=== PATIENT | female | born 1985 | race Caucasian/White ===

== ENCOUNTER 2017-07-11 08:42 | Emergency (ER) | payer MEDICAID ==
[~2017-07-11] VITALS: Ht 170.2 cm; Wt 88.0 kg
[2017-07-11 08:48] VITALS: BP 152/106
--- NOTE | 2017-07-11 09:02 | NUR ---
PT C/O EXTREMITY PAIN X 3 DAYS---DENIES INJURY OR TAKING MEDICATION. DENIES N/V/D; SKIN IS PINK/WARM/DRY; AAOX4 WITH EVEN AND STEADY GAIT; LUNGS CLEAR BL; HR EVEN AND REGULAR; PT DENIES ANY FEVER, CP, SOB, OR COUGH AT THIS TIME; PATIENT STATES PAIN OF 7/10 AT THIS TIME; VSS; PATIENT POSITIONED FOR COMFORT; HOB ELEVATED; BEDRAILS UP X2; BED DOWN. ER MD MADE AWARE OF PT STATUS.
--- NOTE | 2017-07-11 09:38 | NUR ---
PT LEFT FOR X-RAY VIA WHEELCHAIR PER TECH.
--- NOTE | 2017-07-11 11:00 | NUR ---
PT STAYING BED, STATED SHE FEELS FINE. NO S/S OF RESPIRATORY DISTRESS NOTED.
[2017-07-11 11:10] VITALS: BP 150/90
--- NOTE | 2017-07-11 11:12 | NUR ---
Patient discharged with v/s stable. Written and verbal after care instructions given and explained. Patient alert, oriented and verbalized understanding of instructions. Ambulatory with steady gait. All questions addressed prior to discharge. ID band removed. Patient advised to follow up with PMD. Rx of IBUPROFEN AND NORCO given. Patient educated on indication of medication including possible reaction and side effects. Opportunity to ask questions provided and answered.
== END 2017-07-11 11:12 | disposition home or self-care (01) ==
LOC: MED 08:42
DX: L40.9 Psoriasis, unspecified (principal); M25.572 Pain in left ankle and joints of left foot; M25.522 Pain in left elbow
CPT/HCPCS: 73610; 81025; 99284

== ENCOUNTER 2018-11-13 16:46 | Emergency (ER) | payer MEDICAID ==
[~2018-11-13] VITALS: Ht 167.6 cm; Wt 86.2 kg
[2018-11-13 16:54] VITALS: BP 194/105
--- NOTE | 2018-11-13 17:03 | NUR ---
Note undone in EDM - 11/13/18 at 1712 by JASON 33F BIB MOTHER C/O HYPERTENSION X 1 WK. PT STATES SHE FEELS WEAK, DRY MOUTH AND DIZZINESS, NAUSEA, - VOMITING. PT DENIES ANY GONZALES. PT REPORTS OF BLURRY VISION. PT IS AOX4 TO PERSON, PLACE, TIME, AND SITUATION. PT WITH STEADY GAIT. RR ARE EVEN AND UNLABORED. PT DENIES ANY SOB AT THIS TIME, BUT PT STS SOB EARLIER THIS WEEK. NAD. ER MD ESQUEDA NOTIFIED. WILL CONTINUE TO MONITOR.
--- NOTE | 2018-11-13 17:03 | NUR ---
33F BIB MOTHER C/O HYPERTENSION X 1 WK. PT PRESCRIBED BENAZEPRIL TODAY BY PCP. PT STATES SHE FEELS WEAK, DRY MOUTH AND DIZZINESS, NAUSEA, - VOMITING. PT REPORTS OF 9/10 HEADACHE. PT REPORTS OF BLURRY VISION. PT IS AOX4 TO PERSON, PLACE, TIME, AND SITUATION. PT WITH STEADY GAIT. RR ARE EVEN AND UNLABORED. PT DENIES ANY SOB AT THIS TIME, BUT PT STS SOB EARLIER THIS WEEK. NAD. ER MD ESQUEDA NOTIFIED. WILL CONTINUE TO MONITOR.
[2018-11-13] MEDS ORDERED: ENALAPRIL 10 MG TAB PO ONE (17:15)
[2018-11-13] MEDS ORDERED: NACL 0.9% 1,000 ML IV ONE (17:34)
[2018-11-13] MEDS ORDERED: diphenhydrAMINE 50 MG/ML VIAL IVP ONE (17:35)
[2018-11-13] MEDS ORDERED: METOCLOPRAMIDE 10 MG/2 ML INJ VIAL IVP ONE (17:35)
--- NOTE | 2018-11-13 17:40 | NUR ---
ER MD ESQUEDA BY BEDSIDE EXAMINING PT
[2018-11-13 18:53] VITALS: BP 138/86
== END 2018-11-13 17:40 | disposition home or self-care (01) ==
LOC: MED 16:46
DX: R51 Headache (principal); I10 Essential (primary) hypertension
CPT/HCPCS: 81002; 81025; 96374; 96375; 99283; J1200; J2765; J7030

== ENCOUNTER 2023-07-08 12:35 | Emergency (ER) | payer MEDICAID, OTHER ==
[~2023-07-08] VITALS: Ht 165.1 cm; Wt 74.8 kg
[2023-07-08 12:53] VITALS: BP 169/110; PULSE 68; RESP 17; TEMP 97.4; O2SAT 98
[2023-07-08] MEDS ORDERED: diphenhydrAMINE 50 MG/ML VIAL IVP ONE (13:20)
[2023-07-08] MEDS ORDERED: KETOROLAC 30 MG/ML VIAL IVP ONE (13:20)
[2023-07-08] MEDS ORDERED: PROCHLORPERAZINE 10 MG/2 ML VIAL IVP ONE (13:20)
[2023-07-08] MEDS ORDERED: IBUP-2218 PO (14:02)
[2023-07-08] MEDS ORDERED: ACET-10509 PO (14:02)
[2023-07-08 14:17] LABS: BASOPHILS % (AUTO) 0.5 % (0.0-2.0); EOSINOPHILS % (AUTO) 0.4 % (0.0-4.0); HEMATOCRIT 31.2 % (36-48); HEMOGLOBIN 10.8 g/dL (12.0-16.0); LYMPHOCYTES # (AUTO) 1.5 K/uL (2.5-16.5); LYMPHOCYTES % (AUTO) 18.7 % (20.5-51.1); MEAN CORPUSCULAR HEMOGLOBIN 31 pg (27-31); MEAN CORPUSCULAR HGB CONC 35 g/dL (33-37); MEAN CORPUSCULAR VOLUME 89.9 fL (80-94); MONOCYTES # (AUTO) 0.8 K/uL (0.8-1.0); MONOCYTES % (AUTO) 10.2 % (1.7-9.3); NEUTROPHILS # (AUTO) 5.5 K/uL (1.8-7.7); NEUTROPHILS % (AUTO) 70.2 % (42.2-75.2); PLATELET COUNT (AUTO) 158 K/uL (140-450); RED BLOOD CELL COUNT(AUTO) 3.47 MIL/uL (4.20-5.40); RED CELL DISTRIBUTION WIDTH 13.6 % (11.6-13.7); WHITE BLOOD COUNT (AUTO) 7.8 K/uL (4.8-10.8)
[2023-07-08 14:32] LABS: ALANINE AMINOTRANSFERASE 28 U/L (12-78); ALBUMIN 3.5 g/dL (3.4-5.0); ALKALINE PHOSPHATASE 82 U/L (50-136); ANION GAP 11.6 (8-16); ASPARTATE AMINOTRANSFERASE 21 U/L (15-37); CALCIUM 8.5 mg/dL (8.5-10.1); CARBON DIOXIDE 28.3 mmol/L (21-32); CHLORIDE 101 mmol/L (98-107); CREATININE 0.9 mg/dL (0.6-1.3); GFR ARICAN-AMERICAN 92 mL/min (>90); GFR NON ARICAN-AMERICAN 76 mL/min (>90); GLUCOSE 94 mg/dL (74-106); MAGNESIUM 1.9 mg/dL (1.8-2.4); PHOSPHORUS 3.5 mg/dL (2.5-4.9); POTASSIUM 3.9 mmol/L (3.5-5.1); SODIUM SERUM 137 mmol/L (136-145); THYROID STIMULATING HORMONE 1.33 uIU/mL (0.34-3.74); TOTAL BILIRUBIN 0.4 mg/dL (0.0-1.0); TOTAL PROTEIN, SERUM 7.6 g/dL (6.4-8.2); UREA NITROGEN, BLOOD 16 mg/dL (7-18)
[2023-07-08 14:53] VITALS: BP 144/87; PULSE 61; RESP 18; TEMP 97.1; O2SAT 96
== END 2023-07-08 14:52 | disposition home or self-care (01) ==
LOC: MED 12:35
DX: G43.909 Migraine, unspecified, not intractable, without status migrainosus (principal); I10 Essential (primary) hypertension; Z79.899 Other long term (current) drug therapy; Z79.1 Long term (current) use of non-steroidal anti-inflammatories (NSAID)
CPT/HCPCS: 36415; 70450; 80053; 83735; 84100; 84443; 84484; 85025; 93005; 96374; 96375; 99285; J0780; J1200; J1885